=== PATIENT | male | born 1970 | race Hispanic/Latino ===

== ENCOUNTER 2018-07-25 16:17 | Inpatient (IN) | payer OTHER, SELFPAY ==
[2018-07-25] MEDS ORDERED: Fentanyl 100 MCG/2 ML VIAL ONE ×2 (16:45→18:21)
[2018-07-25] MEDS ORDERED: Ondansetron PF 4 MG/2 ML Vial IVP PRN (18:27)
[2018-07-25] MEDS ORDERED: Dextrose 5% in Water 1,000 ML IV PRN (18:27)
[2018-07-25] MEDS ORDERED: Dextrose 50% Abboject 50 ML SYRINGE SLOW IVP PRN (18:27)
[2018-07-25] MEDS ORDERED: Calcium Carbonate 500 MG ChewTAB PO PRN (18:27)
[2018-07-25] MEDS ORDERED: Promethazine HCl 25 MG/ML VIAL IM PRN (18:27)
[2018-07-25] MEDS ORDERED: Mag-Al 1200 mg/1200 mg/30 ML UDCUP PO PRN (18:27)
[2018-07-25] MEDS ORDERED: hydrALAZINE 20 MG/ML VIAL SLOW IVP PRN (18:27)
[2018-07-25] MEDS ORDERED: Morphine 4 MG/ML VIAL SLOW IVP PRN (18:27)
[2018-07-25] MEDS ORDERED: cefOXitin 2 GM in Sodium Chloride 0.9% 100 ML IVPB SCH (18:30)
[2018-07-25] MEDS: Morphine 4 MG/ML VIAL SLOW IVP PRN ×2 (20:56→23:48)
[2018-07-25] MEDS: Famotidine/PF 20 mg/2ml Vial SLOW IVP SCH (20:59)
[2018-07-25] MEDS: D5 1/2 NS w/20 mEq KCL 1,000 ML IV SCH (20:59)
[2018-07-25] MEDS: Famotidine 20 MG TAB PO SCH (21:00)
--- NOTE | 2018-07-26 00:30 | HP ---
CHIEF COMPLAINT: Rectal pain and prolapse. HISTORY OF PRESENT ILLNESS: The patient is a 48-year-old male, who has had no previous rectal problems. Reports having had a 2-day history of constipation. Last night, he was straining on the toilet and tissue popped out from his anus causing severe pain, that has progressed, so he came in today to the emergency room. He has had no previous problems. No family history of colon cancer. He has not had a colonoscopy in the past. PAST MEDICAL HISTORY: Significant for being healthy. PAST SURGICAL HISTORY: None. ALLERGIES: NO KNOWN DRUG ALLERGIES. MEDICATIONS: No medications. SOCIAL HISTORY: He is . He works in maintenance. No tobacco. Occasional alcohol. FAMILY HISTORY: Noncontributory. PHYSICAL EXAMINATION: VITAL SIGNS: His temperature is 98.1, pulse 79, blood pressure 107/74. GENERAL: He is very uncomfortable, lying on his side. He is awake, alert and oriented. HEENT: Otherwise unremarkable. LUNGS: Clear. HEART: Regular rate and rhythm. ABDOMEN: Soft, nondistended, and nontender. RECTAL: He has what appeared to be thrombosed hemorrhoids with almost appearance of rectal prolapse with central necrotic tissue. With difficulty, I was able to reduce partially. The appearance does not have the ring-like appearance of a true rectal prolapse and is therefore more consistent with thrombosed hemorrhoids. ASSESSMENT: Thrombosed external hemorrhoids. PLAN: N.p.o., admit, IV fluids. Sitz bath. Will take to the OR in the morning. Job ID: [id number]
[2018-07-26 05:25] VITALS: BMI 32.6
[2018-07-26] MEDS: Morphine 4 MG/ML VIAL SLOW IVP PRN ×4 (05:30→21:40)
[2018-07-26] MEDS: D5 1/2 NS w/20 mEq KCL 1,000 ML IV SCH ×2 (05:33→16:20)
[2018-07-26 07:49] LABS: #Basophils 0.1 thou/uL (0.0-0.2); #Lymphocytes 1.2 thou/uL (1.20-3.40); #Monocytes 0.6 thou/uL (0.11-0.59); #Neutrophils 4.9 thou/uL (1.40-6.50); %Basophils 0.9 % (0.0-1.0); %Eosinophils 0.5 % (0.0-10.0); %Lymphocytes 17.8 % (21.0-51.0); %Monocytes 8.9 % (0.0-10.0); %Neutrophils 71.9 % (42.0-75.0); Hemoglobin 6.5 g/dL (14.0-18.0); Mean Corpuscular Hemoglobin 18.5 pg (27.0-31.0); Mean Corpuscular Volume 63.9 fL (78.0-98.0); Mean Platelet Volume 9.3 fL (7.4-10.4); Platelet Count 497 thou/uL (130-400); RBC Distribution Width 16.3 % (11.5-14.5); Red Blood Cell (RBC) Count 3.51 mill/uL (4.70-6.10); White Blood Cell (WBC) Count 6.8 thou/uL (4.8-10.8)
[2018-07-26 08:02] LABS: ALT (SGPT) 26 U/L (8-55); AST (SGOT) 20 U/L (5-34); Albumin 3.9 g/dL (3.5-5.0); Alkaline Phosphatase 75 U/L (40-150); Anion Gap 11 mmol/L (10-20); BUN (Urea Nitrogen) 12 mg/dL (8.9-20.6); Bilirubin, Total 0.4 mg/dL (0.2-1.2); Calc. Creatinine Clearance 149 mL/min (70-130); Calcium 9.1 mg/dL (7.8-10.44); Carbon Dioxide 20 mmol/L (22-29); Chloride 108 mmol/L (98-107); Estimated GFR-MDRD Greater than 90; Globulin 3.2 g/dL (2.4-3.5); Glucose 111 mg/dL (70-105); Potassium 3.8 mmol/L (3.5-5.1); Protein, Total 7.1 g/dL (6.0-8.3); Sodium 135 mmol/L (136-145)
[2018-07-26 08:10] LABS: Bite Cells SLIGHT = 2-5 cells (100X) (0-1/hpf); Hypochromia MARKED = >30 cells (100X) (0-5/hpf); MDiff Complete? YES; Microcytosis MARKED = >30 cells (100X) (0-5/hpf); Platelet Morphology Comment Appears Increased; Polychromasia MODERATE = 3-4 cells (100X) (0-2/hpf); Reflex for Review?? YES; Spherocytes SLIGHT = 1-5 cells (100X) (None Seen); Tear Drops SLIGHT = 2-5 cells (100X) (0-1/hpf)
[2018-07-26] MEDS: Famotidine/PF 20 mg/2ml Vial SLOW IVP SCH ×2 (08:33→23:18)
[2018-07-26] MEDS: Famotidine 20 MG TAB PO SCH ×2 (09:15→21:42)
[2018-07-26] MEDS ORDERED: Fentanyl 100 MCG/2 ML VIAL ONE ×2 (12:20→13:16)
[2018-07-26] MEDS ORDERED: CEFAZOLIN 2 GM/50 ML-DEXTROSE 2 GM in Premix Bag 1 BAG IVPB SCH (12:45)
[2018-07-26] MEDS ORDERED: Bupivacaine/Epinephrine 0.25% 30 ML VIAL ONE (12:57)
[2018-07-26] MEDS ORDERED: Bacitracin Zinc Ointment 30 gm TUBE ONE (12:57)
[2018-07-26] MEDS ORDERED: Famotidine/PF 20 mg/2ml Vial ONE (13:16)
[2018-07-26] MEDS ORDERED: SUGAMMADEX SODIUM 500 MG/5 ML VIAL ONE (13:57)
[2018-07-26] MEDS ORDERED: Promethazine HCl 25 MG/ML VIAL IM PRN ×2 (14:03→14:18)
[2018-07-26] MEDS ORDERED: Promethazine HCl 25 MG/ML VIAL SLOW IVP PRN (14:03)
[2018-07-26] MEDS ORDERED: PACU-Morphine 4MG/ML VIAL SLOW IVP PRN (14:03)
[2018-07-26] MEDS ORDERED: Meperidine HCl/PF 25 MG/ML VIAL SLOW IVP PRN (14:03)
[2018-07-26] MEDS ORDERED: Ondansetron HCl/PF 4 MG/2 ML Vial IVP PRN (14:03)
[2018-07-26] MEDS ORDERED: Morphine 4 MG/ML VIAL SLOW IVP PRN (14:18)
[2018-07-26] MEDS ORDERED: hydrALAZINE 20 MG/ML VIAL SLOW IVP PRN (14:18)
[2018-07-26] MEDS ORDERED: Ondansetron PF 4 MG/2 ML Vial IVP PRN (14:18)
[2018-07-26] MEDS ORDERED: Rocuronium Bromide 10 MG/ML (10ML VIAL) ONE (16:39)
[2018-07-26] MEDS ORDERED: ePHEDrine/0.9% NaCl/PF SYRINGE 50 mg/10 ml ONE (16:39)
[2018-07-26] MEDS ORDERED: Lidocaine 1% PF 5 ML VIAL ONE (16:39)
[2018-07-26] MEDS ORDERED: Ketorolac Tromethamine 30 MG/ML VIAL ONE (16:39)
[2018-07-26] MEDS ORDERED: Ondansetron PF 4 MG/2 ML Vial ONE (16:39)
[2018-07-26] MEDS ORDERED: PROPOFOL 200 MG/20 ML VIAL ONE (16:39)
[2018-07-26] MEDS: Ketorolac Tromethamine 30 MG/ML VIAL IVP SCH ×2 (18:21→23:19)
[2018-07-26] MEDS: Acetaminophen 1,000 MG in Premix Bag 1 BAG IVPB SCH ×2 (18:22→23:20)
[2018-07-27] MEDS: D5 1/2 NS w/20 mEq KCL 1,000 ML IV SCH ×3 (03:25→16:22)
[2018-07-27] MEDS: Morphine 4 MG/ML VIAL SLOW IVP PRN ×3 (03:31→17:41)
[2018-07-27] MEDS: Acetaminophen 1,000 MG in Premix Bag 1 BAG IVPB SCH ×2 (06:18→13:08)
[2018-07-27] MEDS: Ketorolac Tromethamine 30 MG/ML VIAL IVP SCH ×4 (06:18→23:28)
[2018-07-27 07:07] LABS: Anion Gap 11 mmol/L (10-20); BUN (Urea Nitrogen) 11 mg/dL (8.9-20.6); Calc. Creatinine Clearance 150 mL/min (70-130); Calcium 8.3 mg/dL (7.8-10.44); Carbon Dioxide 19 mmol/L (22-29); Chloride 110 mmol/L (98-107); Estimated GFR-MDRD Greater than 90; Glucose 114 mg/dL (70-105); Sodium 136 mmol/L (136-145)
[2018-07-27 07:15] LABS: #Lymphocytes 1.3 thou/uL (1.20-3.40); #Monocytes 0.5 thou/uL (0.11-0.59); #Neutrophils 6.3 thou/uL (1.40-6.50); %Basophils 0.3 % (0.0-1.0); %Eosinophils 0.2 % (0.0-10.0); %Lymphocytes 16.2 % (21.0-51.0); %Monocytes 6.6 % (0.0-10.0); %Neutrophils 76.7 % (42.0-75.0); Hemoglobin 5.8 g/dL (14.0-18.0); Mean Corpuscular HGB CONC 28.4 g/dL (32.0-36.0); Mean Corpuscular Hemoglobin 17.9 pg (27.0-31.0); Mean Corpuscular Volume 63.2 fL (78.0-98.0); Mean Platelet Volume 8.8 fL (7.4-10.4); Platelet Count 461 thou/uL (130-400); RBC Distribution Width 16.3 % (11.5-14.5); Red Blood Cell (RBC) Count 3.21 mill/uL (4.70-6.10); White Blood Cell (WBC) Count 8.2 thou/uL (4.8-10.8)
[2018-07-27] MEDS: Famotidine 20 MG TAB PO SCH ×2 (09:28→20:22)
[2018-07-27] MEDS: Famotidine/PF 20 mg/2ml Vial SLOW IVP SCH ×2 (09:28→23:29)
[2018-07-27 19:06] LABS: Hemoglobin 7.2 g/dL (14.0-18.0)
--- NOTE | 2018-07-27 19:16 | PRG ---
DATE OF SERVICE: 07/27/2018 SUBJECTIVE: Mr. Mich Hale is doing well today. He is not having much pain. His prolapse has reoccurred. It is not as bad as it was. OBJECTIVE: VITAL SIGNS: 98 degrees, 71, and 113/76. ABDOMEN: Soft. LUNGS: Clear to auscultation. CARDIAC: Regular rate and rhythm without murmur or gallop. LABORATORY DATA: This morning, his hemoglobin was 5.8. He had 2 units of blood. Basic metabolic profile is normal. ASSESSMENT AND PLAN: Partial rectal prolapse, severe with associated severe anemia. We will start process for transfer to colorectal surgeon. Job ID: [id number]
[2018-07-28] MEDS: Ketorolac Tromethamine 30 MG/ML VIAL IVP SCH ×4 (05:16→23:13)
[2018-07-28] MEDS: Famotidine 20 MG TAB PO SCH ×2 (08:58→20:38)
[2018-07-28] MEDS: Famotidine/PF 20 mg/2ml Vial SLOW IVP SCH (08:58)
--- NOTE | 2018-07-28 13:49 | OP ---
DATE OF PROCEDURE: 07/26/2018 PREOPERATIVE DIAGNOSIS: Prolapse rectal mass. PROCEDURES PERFORMED: Examination under anesthesia, biopsy of rectal mass with frozen section, incision and drainage of multiple thrombosed hemorrhoids, and reduction of mass. INDICATIONS: The patient is a 48-year-old male, who had reports a 3-day history of constipation. Night before last, he was straining on the toilet when he passed this tissue that became excruciatingly painful. He waited for 24 hours and went to the emergency room. On exam, he had this angry, almost very suspicious looking mass prolapsing through the central portion of his rectum with thrombosed hemorrhoids. It was too tender to examine thoroughly. FINDINGS: It was actually an asymmetric prolapse of the right rectal wall. He had multiple thrombosed external hemorrhoids. The frozen section came back benign rectal prolapse. DESCRIPTION OF PROCEDURE: After informed consent was obtained, the patient was taken to the operating room and given general endotracheal anesthesia. He was placed on the lithotomy position. His perianal region was prepped and draped in usual fashion. Digital exam revealed that this firm mass was prolapsing, was coming from the right side of the rectum. On the left side, it was not prolapsing. This mass was somewhat suspicious for neoplasm, so using the LigaSure, a biopsy of approximately 3 cm x 1 cm of mucosa was sent to pathology for further analysis. While waiting for the results, these external hemorrhoids were radially incised to express the clot. Then, a four quadrant anal block was performed with 0.5% Marcaine. Hemostasis achieved with some chromic suture. The biopsies came back benign rectal mucosa/prolapse. I was able to reduce this thing and hemostasis assured utilizing electrocautery and 3-0 chromic sutures. Gel-Foam was inserted within the anal canal to aid in maintaining reduction and a sterile bandage applied. The patient tolerated the procedure well, transferred to Recovery in good condition. Job ID: [id number]
[2018-07-28] MEDS: Morphine 4 MG/ML VIAL SLOW IVP PRN (16:10)
[2018-07-28 17:56] LABS: #Basophils 0.1 thou/uL (0.0-0.2); #Eosinphils 0.1 thou/uL (0.0-0.7); #Lymphocytes 1.8 thou/uL (1.20-3.40); #Monocytes 0.5 thou/uL (0.11-0.59); #Neutrophils 4.4 thou/uL (1.40-6.50); %Eosinophils 1.6 % (0.0-10.0); %Lymphocytes 26.1 % (21.0-51.0); %Monocytes 7.2 % (0.0-10.0); %Neutrophils 64.3 % (42.0-75.0); Hemoglobin 7.5 g/dL (14.0-18.0); Mean Corpuscular HGB CONC 30.5 g/dL (32.0-36.0); Mean Corpuscular Hemoglobin 19.7 pg (27.0-31.0); Mean Corpuscular Volume 64.5 fL (78.0-98.0); Mean Platelet Volume 8.7 fL (7.4-10.4); Platelet Count 438 thou/uL (130-400); RBC Distribution Width 20.2 % (11.5-14.5); White Blood Cell (WBC) Count 6.8 thou/uL (4.8-10.8)
--- NOTE | 2018-07-28 18:59 | PRG ---
DATE OF SERVICE: 07/28/2018 SUBJECTIVE: Mich Hale has a eric-rectal prolapse. He was transfused 2 units of blood yesterday with the hemoglobin of 5.8. This morning's hemoglobin post transfusion, it was 7.2, this morning is 7.5. He makes hemodynamically stable. His rectal prolapse has recurred is causing him discomfort. We will initiate process to transfer him to [place] for colorectal surgeon to attend to this problem. Job ID: [id number]
[2018-07-29] MEDS: Famotidine/PF 20 mg/2ml Vial SLOW IVP SCH ×3 (00:49→20:02)
[2018-07-29] MEDS: Ketorolac Tromethamine 30 MG/ML VIAL IVP SCH ×3 (05:58→17:50)
[2018-07-29 06:14] LABS: #Basophils 0.1 thou/uL (0.0-0.2); #Eosinphils 0.1 thou/uL (0.0-0.7); #Lymphocytes 1.4 thou/uL (1.20-3.40); #Monocytes 0.5 thou/uL (0.11-0.59); #Neutrophils 4.1 thou/uL (1.40-6.50); %Basophils 0.9 % (0.0-1.0); %Eosinophils 1.8 % (0.0-10.0); %Lymphocytes 23.1 % (21.0-51.0); %Monocytes 8.6 % (0.0-10.0); %Neutrophils 65.6 % (42.0-75.0); Hemoglobin 7.3 g/dL (14.0-18.0); Mean Corpuscular HGB CONC 30.1 g/dL (32.0-36.0); Mean Corpuscular Hemoglobin 20.1 pg (27.0-31.0); Mean Corpuscular Volume 66.8 fL (78.0-98.0); Mean Platelet Volume 9.5 fL (7.4-10.4); Platelet Count 442 thou/uL (130-400); RBC Distribution Width 20.2 % (11.5-14.5); Red Blood Cell (RBC) Count 3.65 mill/uL (4.70-6.10); White Blood Cell (WBC) Count 6.2 thou/uL (4.8-10.8)
[2018-07-29 06:27] LABS: Anion Gap 11 mmol/L (10-20); BUN (Urea Nitrogen) 15 mg/dL (8.9-20.6); Calc. Creatinine Clearance 149 mL/min (70-130); Calcium 8.6 mg/dL (7.8-10.44); Carbon Dioxide 22 mmol/L (22-29); Chloride 111 mmol/L (98-107); Estimated GFR-MDRD Greater than 90; Glucose 85 mg/dL (70-105); Potassium 3.6 mmol/L (3.5-5.1); Sodium 140 mmol/L (136-145)
[2018-07-29] MEDS: Famotidine 20 MG TAB PO SCH ×2 (08:33→20:02)
[2018-07-29] MEDS: Morphine 4 MG/ML VIAL SLOW IVP PRN (12:40)
[2018-07-29] MEDS ORDERED: HYDROcodone/Acetaminophen 10/325 mg Tablet PO PRN (12:58)
--- NOTE | 2018-07-29 13:38 | PRG ---
DATE OF SERVICE: 07/29/2018 SUBJECTIVE: The patient continues to have significant pain requiring morphine, although he currently says it is a 5/10. He is passing some flatus, some minimal bloody drainage from his anus. OBJECTIVE: VITAL SIGNS: Temperature is 98, pulse 67, blood pressure 107/64. He still has prolapsed rectum that is pretty angry. LABORATORY DATA: His white count 6.2, hemoglobin 7.3, hematocrit of 24.3, his platelet count is 442. I called [facility] our referral center and spoke to a colorectal surgeon, Dr. Coffman this morning, hoping to transfer this patient for further upgrade of care by a colorectal specialist. In discussion with this doctor, he felt that the patient was not eligible for transfer that he should come as an outpatient to their clinic and see Dr. Castillo as an outpatient. The clinic number was [phone]. I have not been able to get a hold of anyone at that clinic. It is a holiday today so presumably that is the reason, so we will not be able to transfer the patient or discharge him at this point until I have a followup scheduled. Job ID: [id number]
--- NOTE | 2018-07-29 15:59 | CT ---
CT PELVIS WITH IV CONTRAST: DATE: 07/29/2018. HISTORY: Prolapsed rectum. The patient states felt a pop and found prolapsed rectum on Sunday07/24/2018. FINDINGS: There is colonic diverticulosis seen involving the visualized descending colon as well as sigmoid col on. There is a small amount of retained fecal material seen in the visualized colon. There is a mas s-like density seen extending through the region of the anus likely related to patient's clinical his tory of prolapse of the rectum. Mass with associated rectal prolapse cannot be entirely excluded. . Loops of small bowel are normal in caliber. The appendix is partially imaged and normal in caliber. Urinary bladder has a normal CT appearance. No free fluid, fluid collection, or lymphadenopathy is seen in the abdomen or pelvis. IMPRESSION: 1. Mass-like structure seen extending just external to the anus. This likely corresponds to patient 's clinical history of rectal prolapse. Mass and associated rectal prolapse could not be excluded. This is difficult to further delineate on this exam. This would be better assessed with clinical exam . 2. Colonic diverticulosis. POS: NONA
[2018-07-29] MEDS ORDERED: Iopamidol 370 76% 100 ML VIAL ONE (16:54)
[2018-07-29] MEDS ORDERED: Iopamidol 370 76% 50 ML VIAL FS ONE (16:54)
[2018-07-29] MEDS: HYDROcodone/Acetaminophen 10/325 mg Tablet PO PRN (19:57)
[2018-07-30] MEDS: HYDROcodone/Acetaminophen 10/325 mg Tablet PO PRN ×4 (04:36→18:21)
[2018-07-30] MEDS: Famotidine 20 MG TAB PO SCH (08:40)
[2018-07-30] MEDS: Famotidine/PF 20 mg/2ml Vial SLOW IVP SCH (08:40)
--- NOTE | 2018-07-30 10:53 | PRG ---
DATE OF SERVICE: 07/30/2018 SUBJECTIVE: The patient is currently feeling better. Still having pain, but the pain was controlled on hydrocodone. I am having a very difficult time getting the patient transferred anywhere for help. Yesterday, I talked to Dr. Coffman in Acute Care Surgery at [facility]. He referred me to a Dr. Castillo. The phone number that was given to me was not a working phone number. I found her phone number and was able to talk to her just a minute ago. She would like the patient to be evaluated down there as soon as possible, but did not accept the patient. She asked me to call the Acute Care Surgery Department again. I also left a message with Dr. Jamal Carbone's office in [place]. He is also a colon and rectal surgeon. I am having difficulty getting them to listen to me as far as what the problem is and what needs to be dealt with, and he still has a prolapsed mass coming through his anus. The biopsy which was a hyperplastic tissue, possible polyp, so I am just documenting that I am trying to get this patient care that he needs. Currently, his vital signs; temperature 98, pulse 69, and blood pressure 146/70. He looks fine. He is in no apparent distress at this time. Again, he does have prolapse of tissue through his anus that is very ischemic. I am going to try to contact our leadership to see what we can do to get this patient transferred. Job ID: [id number]
[2018-07-30 16:07] VITALS: BP 114/72; TEMP 98
--- NOTE | 2018-07-30 23:09 | DIS ---
DATE OF ADMISSION: 07/25/2018 DATE OF DISCHARGE: 07/30/2018 TRANSFER/DISCHARGE SUMMARY DISCHARGE DIAGNOSIS: Prolapsed large rectal polyp with ischemia, thrombosed hemorrhoids. PROCEDURES DURING ADMISSION: Examination under anesthesia, drainage of thrombosed hemorrhoids, reduction of prolapsed rectal polyp, CT scan of pelvis. HOSPITAL COURSE: The patient was admitted, given IV fluids, IV pain medicine, taken to the operating room where he underwent an exam under anesthesia. He was found to have a ring of thrombosed hemorrhoids preventing reduction of this mass and a mass attached to the right wall of the rectum. It was sessile and not pedunculated, what appeared to be ischemic mucosa. This was sent for biopsy and came back hyperplastic polyp. The mass was reduced and reduction was thought to be maintained utilizing some Gel-Foam within the rectal vault. However, the following day, he recurred. Attempts were made to transfer over the weekend, but there was not an accepting physician at [facility] or from where the transfer center could find an accepting physician. On Sunday, an attempt was again made to transfer the patient was unsuccessful. Today, I was able to get a hold of the colon and rectal surgeon, who accepted the patient through the General Surgery team at [facility]. He will be transferred there via ambulance. Job ID: [id number]
== END 2018-07-30 18:49 | disposition short-term general hospital (02) | DRG 346 ==
LOC: SCSER 16:17 → SURG B 18:20
PROVIDERS: ADMIT Surgery; ATTEND Surgery
PROC: 0DBP0ZX Excision of Rectum, Open Approach, Diagnostic (ICD-10-PCS; principal; 2018-07-25)
PROC: 069Y0ZZ Drainage of Lower Vein, Open Approach (ICD-10-PCS; 2018-07-25)
PROC: 30233N1 Transfusion of Nonautologous Red Blood Cells into Peripheral Vein, Percutaneous Approach (ICD-10-PCS; 2018-07-25)
DX: K62.3 Rectal prolapse (principal); K64.5 Perianal venous thrombosis
CPT/HCPCS: 36415; 36430; 72193; 80048; 80053; 85025; 85060; 86850; 86900; 86901; 88305; 88331; 90471; 90686; 96372; 96374; G0008; J0131; J0694; J1885; J2001; J2270; J2405; J2704; J3010; J7050; P9016; S0028